=== PATIENT | female | born 1960 | race Caucasian/White ===

== ENCOUNTER 2017-01-23 09:33 | Emergency (ER) | payer BC ==
--- NOTE | 2017-01-23 10:19 | XRAY Preliminary Report ---
Exam: XR CHEST 1 VIEW IMPRESSION: Negative portable chest. [facility] SITE ID: [id number]
--- NOTE | 2017-01-23 10:21 | XRAY Report ---
EXAM: CHEST RADIOGRAPHY EXAM DATE: 01/23/2017 10:09 AM. CLINICAL HISTORY: Chest pain. COMPARISON: None. TECHNIQUE: 1 view. FINDINGS: Lungs/Pleura: No focal opacities evident. No pleural effusion. No pneumothorax. Mediastinum: Within exam limitations, the cardiomediastinal contour is normal. Other: None. IMPRESSION: Negative portable chest. [facility] Referring Provider Line: [phone] SITE ID: [id number]
[2017-01-23 10:43] LABS: BASOPHILS % (AUTO) 0.9 %; EOSINOPHILS # (AUTO) 0.2 10^3/uL (0.0-0.7); EOSINOPHILS % (AUTO) 2.7 %; HCT - HEMATOCRIT 43.6 % (37.0-47.0); HGB - HEMOGLOBIN 14.3 g/dL (12.0-16.0); LYMPHOCYTES # (AUTO) 1.7 10^3/uL (1.5-3.5); MEAN CORPUSCULAR HEMOGLOBIN 28.6 pg (27.0-31.0); MEAN CORPUSCULAR HGB CONC 32.9 g/dL (32.0-36.0); MEAN CORPUSCULAR VOLUME 86.9 fL (81.0-99.0); MEAN PLATELET VOLUME 8.6 fL (7.9-10.8); MONOCYTES # (AUTO) 0.5 10^3/uL (0.0-1.0); MONOCYTES % (AUTO) 8.2 %; NEUTROPHILS # (AUTO) 3.2 10^3/uL (1.5-6.6); NEUTROPHILS % (AUTO) 57.2 %; RED BLOOD COUNT 5.02 10^6/uL (4.20-5.40); RED CELL DISTRIBUTION WIDTH 14.4 % (12.0-15.0); UNCORRECTED WHITE BLOOD COUNT 5.6 x10^3/uL; WHITE BLOOD COUNT 5.6 x10^3/uL (4.8-10.8)
[2017-01-23] MEDS ORDERED: NITROGLYCERIN SL 0.4 MG TABLET SL STA (11:05)
[2017-01-23 11:08] LABS: ALBUMIN/GLOBULIN RATIO 1.6 (1.0-2.2); BILIRUBIN,TOTAL 0.5 mg/dL (0.2-1.0); CALCIUM 9.4 mg/dL (8.5-10.3); POTASSIUM 3.2 mmol/L (3.5-5.0); TOTAL PROTEIN 6.9 g/dL (6.7-8.2)
--- NOTE | 2017-01-23 11:09 | ED Physician Documentation ---
PD HPI CHEST PAIN - Stated complaint Stated Complaint: CHEST PX - Chief complaint Chief Complaint: Cardiac - History obtained from History obtained from: Patient - History of Present Illness Timing - onset: How many hours ago (10) Timing - onset during: Rest Timing - details: Still present Quality: Other ("Heaviness") Location: Substernal Worsened by: Palpation Associated symptoms: No: Shortness of air, Diaphoresis, Nausea, Vomiting Similar symptoms before: Has not had sx before - Additional information Additional information: The patient is a 56-year-old female who presents with substernal chest heaviness that started last night, about 10 hours prior to arrival while in bed. She noticed that it was worse with palpation in the lower sternal region. It became slightly better when sitting up at the edge of the bed. She went back to sleep, but when she awoke this morning she continued to have the feeling of heaviness in her chest. She denies associated nausea, vomiting, shortness of breath, or diaphoresis. She has felt congested, but denies cough or fever, but did have a brief episode of chills last night. She denies history of similar symptoms in the past. She does have a history of migraine headaches, which usually respond to Imitrex and Phenergan. Social history is significant for a plane flight from [place] yesterday. She denies any discomfort in her legs. She has been on a keto diet for the past 3 weeks. She does not smoke cigarettes. She is not treated for diabetes or hypertension. She does report hyperlipidemia. There is no family history of early DC. Review of Systems Constitutional: denies: Fever, Fatigue Nose: reports: Congestion Throat: denies: Sore throat Cardiac: reports: Chest pain / pressure. denies: Palpitations Respiratory: denies: Dyspnea, Cough GI: denies: Abdominal Pain, Nausea, Vomiting : denies: Dysuria Skin: denies: Rash Musculoskeletal: denies: Neck pain, Back pain, Extremity pain, Extremity swelling Neurologic: reports: Headache (mild). 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 - Present Medications Home Medications: Ambulatory Orders Medication Instructions Recorded Confirmed Topiramate 75 mg PO DAILY 10/06/12 09/15/15 Atorvastatin Calcium 10 mg PO DAILY 10/27/12 09/15/15 Baclofen [Lioresal] 10 mg PO DAILY 10/27/12 09/15/15 FLUoxetine [PROzac] 20 mg PO DAILY 10/27/12 09/15/15 Hydroxyzine HCl 50 mg PO DAILY PRN 10/27/12 09/15/15 Magnesium Oxide [Magnesium] 250 mg PO DAILY 10/27/12 09/15/15 Riboflavin [Vitamin B-2] 400 mg PO DAILY 10/27/12 09/15/15 Promethazine Inj [Phenergan Inj] 25 mg IM Q6HR PRN 11/08/12 09/15/15 Sumatriptan Inj [Imitrex] 6 mg SUBQ ONCE PRN #10 vial 04/09/13 09/15/15 Chlorpromazine HCl 50 mg PO Q8HR PRN 01/20/15 09/15/15 oxyCODONE/ACET 5/325 [Percocet 5 1 - 2 each PO Q6H PRN #20 tablet 01/20/1509/14 mg/325 mg] HYDROcod/ACETAM 5/325 [Vicodin 1 - 2 ea PO Q6H PRN #15 tablet 09/15/15 5/325] Ondansetron Odt [Zofran] 4 mg TL Q6H PRN #20 tablet 09/15/15 Nitroglycerin [Nitrostat] 0.4 mg SL Q5MIN PRN #25 tablet 01/23/17 - Allergies Allergies/Adverse Reactions: Allergies Allergy/AdvReac Type Severity Reaction Status Date / Time meperidine HCl * Allergy Intermediate Itching Verified 02/11/16 20:42 [From Demerol] ketorolac tromethamine * Allergy Unknown Unknown Verified 02/11/16 20:42 [From Toradol] sulfamethoxazole AdvReac Severe Headache Verified 02/11/16 20:42 [From Septra] trimethoprim [From Septra] AdvReac Severe Headache Verified 02/11/16 20:42 - Social History Does the pt smoke?: No Smoking Status: Never smoker Does the pt drink ETOH?: No Does the pt have substance abuse?: No - Immunizations Immunizations are current?: No Immunizations: Other immun not current - POLST Patient has POLST: No PD ED PE NORMAL - Vitals Vital signs reviewed: Yes (normal) - General General: Alert and oriented X 3, Well developed/nourished - HEENT HEENT: Atraumatic, Moist mucous membranes, Pharynx benign - Neck Neck: No JVD - Cardiac Cardiac: RRR, No murmur - Respiratory Respiratory: No respiratory distress, Clear bilaterally, Other (No chest wall tenderness to palpation.) - Abdomen Abdomen: Soft, Non tender, No organomegaly - Back Back: No CVA TTP - Derm Derm: No rash - Extremities Extremities: No edema, No calf tenderness / cord - Neuro Neuro: Alert and oriented X 3, No motor deficit, No sensory deficit Results - Vitals Vitals: Oxygen O2 Source Room air - EKG (time done) 09:44 Rate: Rate (enter#) (75) Rhythm: NSR Zoe: LAD Ischemia: Non specific changes Computer interpretation: Agree with computer - Labs Labs: Laboratory Tests 01/23/17 01/23/17 01/23/17 10:20 10:20 10:20 WBC 5.6 RBC 5.02 Hgb 14.3 Hct 43.6 MCV 86.9 MCH 28.6 MCHC 32.9 RDW 14.4 Plt Count 266 MPV 8.6 Neut # 3.2 Lymph # 1.7 Lares # 0.5 Eos # 0.2 Baso # 0.0 Absolute Nucleated RBC 0.00 Nucleated RBC % 0.0 Sodium 140 Potassium 3.2 L Chloride 106 Carbon Dioxide 23 Anion Gap 11.0 BUN 23 H Creatinine 1.0 Estimated GFR (MDRD) 57 L Glucose 91 Calcium 9.4 Total Bilirubin 0.5 AST 18 ALT 16 Alkaline Phosphatase 51 Troponin I < 0.04 Total Protein 6.9 Albumin 4.2 Globulin 2.7 Albumin/Globulin Ratio 1.6 Lipase 36 01/23/17 13:12 WBC RBC Hgb Hct MCV MCH MCHC RDW Plt Count MPV Neut # Lymph # Lares # Eos # Baso # Absolute Nucleated RBC Nucleated RBC % Sodium Potassium Chloride Carbon Dioxide Anion Gap BUN Creatinine Estimated GFR (MDRD) Glucose Calcium Total Bilirubin AST ALT Alkaline Phosphatase Troponin I < 0.04 Total Protein Albumin Globulin Albumin/Globulin Ratio Lipase - Rads (name of study) 1-view CXR Radiology: Prelim report reviewed, EMP read contemporaneously, See rad report ( Negative portable chest.) PD MEDICAL DECISION MAKING - ED course Complexity details: reviewed results, re-evaluated patient, considered differential, d/w patient, d/w family, d/w PMD ED course: The patient's presentation is significant for chest pain of unclear etiology. Cardiac ischemia was considered. There is no acute ST elevation noted on echocardiogram, and true troponin levels 3 hours apart were both negative. I do not think the patient has had an acute myocardial infarction, but it would be prudent to undergo further evaluation with cardiac stress testing. I do not think her symptoms are caused by pulmonary embolus, and there is no other pulmonary abnormality noted on chest x-ray. Gastroesophageal reflux remains a consideration. Treatment in the emergency department included administration of 4 baby aspirin and 1 sublingual nitroglycerin. The patient's chest heaviness completely resolved after 1 sublingual nitroglycerin. She had no recurrence of symptoms over the course of several hours of observation in the emergency department. I discussed her presentation with Dr. Espinosa, who is taking call for MARJORIE Rodriguez. We discussed arranging for outpatient cardiac stress testing. The patient is being discharged with prescription for sublingual nitroglycerin. I discussed with her the results of her workup, the importance of outpatient follow-up, as well as potentially worrisome signs or symptoms that should prompt reevaluation in the emergency department. Departure - Departure Disposition: 01 Home, Self Care Clinical Impression: Chest pain Qualifiers: Chest pain type: precordial pain Qualified Code(s): R07.2 - Precordial pain Condition: Stable Instructions: ED Heart Disease Risk Factors Follow-Up: Kimberly Rodriguez PA [Primary Care Provider] - Prescriptions: Nitroglycerin [Nitrostat] 0.4 mg SL Q5MIN PRN #25 tablet PRN Reason: Angina Comments: Take one baby aspirin daily. If you develop recurrent chest discomfort, take sublingual nitroglycerin. If the pain does not resolve within 5 minutes, take a second sublingual nitroglycerin and call 911. Schedule followup appointment with your primary physician within one week. Call to schedule an appointment. I have talked to her partner about scheduling an outpatient cardiac stress test. Return to the emergency room if you develop recurrent or increasing chest pain, shortness of breath, or otherwise worsening symptoms. Discharge Date/Time: 01/23/17 14:19
[2017-01-23] MEDS ORDERED: NITROGLYCERIN SL 0.4 MG TABLET SL ONE (11:11)
[2017-01-23] MEDS ORDERED: ASPIRIN CHEW 81 MG TABLET PO STA (12:13)
[2017-01-23] MEDS ORDERED: ASPIRIN CHEW 81 MG TABLET ONE (12:35)
[2017-01-23 14:15] VITALS: BP 111/77
== END 2017-01-23 14:19 | disposition home or self-care (01) ==
LOC: ED 09:33
DX: R07.2 Precordial pain (principal)
CPT/HCPCS: 36415; 71010; 80053; 83690; 84484; 85025; 93005; 99284; A9270

== ENCOUNTER 2017-05-12 15:26 | Outpatient (CLI) | payer BC ==
--- NOTE | 2017-05-12 17:31 | Ultrasound Report ---
EXAM: LEFT LOWER EXTREMITY VENOUS ULTRASOUND EXAM DATE: 05/12/2017 05:10 PM. CLINICAL HISTORY: Calf pain and swelling. Factor V. COMPARISON: None. TECHNIQUE: Real-time sonographic vascular imaging was performed by the rehab therapy manager through the lower extremity utilizing both color-flow and Doppler spectral analysis. Multiple communications representative static kristi ges were saved for review. FINDINGS: Common Femoral Vein (CFV): Normal. CFV-GSV Junction: Normal. Profunda Femoral Vein (PFV): Normal. Femoral Vein (FV) Prox: Normal. Femoral Vein (FV) Mid: Occlusive thrombus. Femoral Vein (FV) Dist: Occlusive thrombus. Popliteal Vein: Occlusive thrombus. Posterior Tibial Veins: Occlusive thrombus. Peroneal Veins: Occlusive thrombus. IMPRESSION: Occlusive DVT involving the mid to distal femoral vein, popliteal vein, and calf veins. ALYCIAA The call report notification system was initiated by Dr. Lui Floyd at 17:21 hrs on 05/12/17. The above findings were discussed with MARJORIE Rodriguez by Dr. Liu Floyd at 17:29 hrs on 05/12/17. Referring Provider Line: [phone] SITE ID: [id number]
== END 2017-05-12 15:27 | disposition home or self-care (01) ==
LOC: DI 15:26
PROVIDERS: ATTEND Physician Assistant
DX: I82.412 Acute embolism and thrombosis of left femoral vein (principal); I82.432 Acute embolism and thrombosis of left popliteal vein; I82.4Z2 Acute embolism and thrombosis of unspecified deep veins of left distal lower extremity

== ENCOUNTER 2017-05-12 17:36 | Emergency (ER) | payer BC ==
[2017-05-12] MEDS ORDERED: RIVAROXABAN 15 MG TABLET PO STA (18:53)
--- NOTE | 2017-05-12 18:57 | ED Physician Documentation ---
History of Present Illness - Stated complaint Stated Complaint: LT CALF PX/US RESULT - Chief complaint Chief Complaint: Ext Problem - Additonal information Additional information: hx from pt 56 f hx factor V leiden def recent leg injury now swollen with politeal and thigh pain no CP or SOA went to PMD who ordered a doppler which showed an extensive DVT sent to ER ot have anticoagulation started no hx hepatic of kidney dz - nl LFTs and creat 1.0 last fall Review of Systems Constitutional: denies: Fever Cardiac: denies: Chest pain / pressure Respiratory: denies: Dyspnea Musculoskeletal: reports: Extremity pain, Extremity swelling PD PAST MEDICAL HISTORY - Past Medical History Past Medical History: Yes Cardiovascular: High cholesterol Neuro: Headache/migraine Endocrine/Autoimmune: None GI: None - Past Surgical 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 - Present Medications Home Medications: Ambulatory Orders Medication Instructions Recorded Confirmed Topiramate 75 mg PO DAILY 10/06/12 09/15/15 Atorvastatin Calcium 10 mg PO DAILY 10/27/12 09/15/15 Baclofen [Lioresal] 10 mg PO DAILY 10/27/12 09/15/15 FLUoxetine [PROzac] 20 mg PO DAILY 10/27/12 09/15/15 Hydroxyzine HCl 50 mg PO DAILY PRN 10/27/12 09/15/15 Magnesium Oxide [Magnesium] 250 mg PO DAILY 10/27/12 09/15/15 Riboflavin [Vitamin B-2] 400 mg PO DAILY 10/27/12 09/15/15 Promethazine Inj [Phenergan Inj] 25 mg IM Q6HR PRN 11/08/12 09/15/15 Sumatriptan Inj [Imitrex] 6 mg SUBQ ONCE PRN #10 vial 04/09/13 09/15/15 Chlorpromazine HCl 50 mg PO Q8HR PRN 01/20/15 09/15/15 oxyCODONE/ACET 5/325 [Percocet 5 1 - 2 each PO Q6H PRN #20 tablet 01/20/1509/14 mg/325 mg] HYDROcod/ACETAM 5/325 [Vicodin 1 - 2 ea PO Q6H PRN #15 tablet 09/15/15 5/325] Ondansetron Odt [Zofran] 4 mg TL Q6H PRN #20 tablet 09/15/15 Nitroglycerin [Nitrostat] 0.4 mg SL Q5MIN PRN #25 tablet 01/23/17 Rivaroxaban [Xarelto] 15 mg PO BID #41 tablet 05/12/17 - Allergies Allergies/Adverse Reactions: Allergies Allergy/AdvReac Type Severity Reaction Status Date / Time meperidine HCl * Allergy Intermediate Itching Verified 02/11/16 20:42 [From Demerol] ketorolac tromethamine * Allergy Unknown Unknown Verified 02/11/16 20:42 [From Toradol] sulfamethoxazole AdvReac Severe Headache Verified 02/11/16 20:42 [From Septra] trimethoprim [From Septra] AdvReac Severe Headache Verified 02/11/16 20:42 - Social History Does the pt smoke?: No Smoking Status: Never smoker Does the pt drink ETOH?: No Does the pt have substance abuse?: No - Immunizations Immunizations are current?: No Immunizations: Other immun not current - POLST Patient has POLST: No PD ED PE NORMAL - Vitals Vital signs reviewed: Yes - Cardiac Cardiac: RRR - Respiratory Respiratory: No respiratory distress, Clear bilaterally - Extremities Extremities: No: Other (LLE - swollen calf, popliteal ,TTP, some medial calf TTP., MSV intact) Results - Vitals Vitals: Vital Signs - 24 hr 05/12/17 17:49 Temperature 37.3 C Heart Rate 79 Respiratory 18 Rate Blood Pressure 103/83 H O2 Saturation 99 Oxygen O2 Source Room air PD MEDICAL DECISION MAKING - ED course ED course: doppler report - occlussive DVT mid to distal femoral vein, popliteal vein, calf veins no s/sx PE no contraindication to xarelto started PO xarelto - will write for first three weeks of BID then PMD can write for the 20 PO QD and determine duration of tx given underlying factor V leiden - or pt could have her quality control coordinator manage that Departure - Departure Disposition: 01 Home, Self Care Clinical Impression: DVT (deep venous thrombosis) Qualifiers: DVT location: lower extremity Affected thrombotic vein of extremity: femoral Chronicity: acute Laterality: left Qualified Code(s): I82.412 - Acute embolism and thrombosis of left femoral vein Condition: Good Instructions: ED DVT Follow-Up: Kimberly Rodriguez PA [Primary Care Provider] - Judy Mcgee MD [Provider Admit Priv/Credential] - Prescriptions: Rivaroxaban [Xarelto] 15 mg PO BID #41 tablet Comments: You need to take the xarelto 15 mg dose twice a day for 21 days - I wrote this prescription Then you change to 20 mg once a day - your PMD can write that prescription. You will need to be on the blood thinner for at least 3 months Given your Factor V Leiden disease, you may need a longer duration of treatment - please discuss how long you need to take the xarelto with your quality control coordinator Dr Mcgee. If at any time you develop chest pain or shortness of breath come back to the ER right away - that might indicate a blood clot in your lung called a pulmonary embolus and that can be very dangerous. If you fall or get hurt - especially if you hit your head - while on xarelto, come to the emergency department to be checked out. Be sure to let any health care providers you see know you are on xarelto
[2017-05-12 19:20] VITALS: BP 107/89
== END 2017-05-12 19:17 | disposition home or self-care (01) ==
LOC: ED 17:36
DX: I82.412 Acute embolism and thrombosis of left femoral vein (principal); D68.51 Activated protein C resistance; I82.432 Acute embolism and thrombosis of left popliteal vein; I82.4Z2 Acute embolism and thrombosis of unspecified deep veins of left distal lower extremity
CPT/HCPCS: 93971; 99283; A9270

== ENCOUNTER 2017-07-21 13:49 | Outpatient (CLI) | payer BC ==
--- NOTE | 2017-07-21 15:29 | XRAY Report ---
TWO VIEW THORACIC SPINE: 07/21/2017 CLINICAL INDICATION: Back pain. FINDINGS: Frontal and lateral views of the thoracic spine demonstrate mild degenerative disk disease, with minimal levoscoliosis of the upper thoracic spine. There is no evidence of compression fracture or subluxation. No paraspinal hematoma is seen. IMPRESSION: MILD DEGENERATIVE DISK DISEASE, WITH MINIMAL LEVOSCOLIOSIS OF THE UPPER THORACIC SPINE. TD: 07/21/2017 15:28
== END 2017-07-21 13:50 | disposition home or self-care (01) ==
LOC: DI.S 13:49
PROVIDERS: ATTEND Physician Assistant
DX: M51.34 Other intervertebral disc degeneration, thoracic region (principal); M41.84 Other forms of scoliosis, thoracic region
CPT/HCPCS: 72070

== ENCOUNTER 2017-08-24 14:55 | Outpatient (CLI) | payer BC ==
[2017-08-24 18:54] LABS: INR 1.6 (0.8-1.2); PT - PROTHROMBIN TIME 17.9 secs (9.9-12.6)
== END 2017-08-24 14:56 | disposition home or self-care (01) ==
LOC: LAB.F 14:55
PROVIDERS: ATTEND Internal Medicine
DX: I82.402 Acute embolism and thrombosis of unspecified deep veins of left lower extremity (principal)
CPT/HCPCS: 36415; 85610

== ENCOUNTER 2017-08-27 09:21 | Outpatient (CLI) | payer BC | END 2017-08-27 09:22 | disposition home or self-care (01) | LOC: LAB.F 09:21 | PROVIDERS: ATTEND Internal Medicine | DX: I82.402 Acute embolism and thrombosis of unspecified deep veins of left lower extremity (principal) | CPT/HCPCS: 85610 ==

== ENCOUNTER 2017-09-03 11:03 | Outpatient (CLI) | payer BC | END 2017-09-03 11:04 | disposition home or self-care (01) | LOC: LAB.F 11:03 | PROVIDERS: ATTEND Internal Medicine | DX: I82.402 Acute embolism and thrombosis of unspecified deep veins of left lower extremity (principal) | CPT/HCPCS: 85610 ==

== ENCOUNTER 2017-09-10 08:01 | Outpatient (CLI) | payer BC | END 2017-09-10 08:02 | disposition home or self-care (01) | LOC: LAB.F 08:01 | PROVIDERS: ATTEND Internal Medicine | DX: I82.402 Acute embolism and thrombosis of unspecified deep veins of left lower extremity (principal) | CPT/HCPCS: 85610 ==

== ENCOUNTER 2017-09-15 12:28 | Outpatient (CLI) | payer BC | END 2017-09-15 12:29 | disposition home or self-care (01) | LOC: LAB.F 12:28 | PROVIDERS: ATTEND Internal Medicine | DX: I82.402 Acute embolism and thrombosis of unspecified deep veins of left lower extremity (principal) | CPT/HCPCS: 85610 ==

== ENCOUNTER 2017-09-22 08:00 | Outpatient (CLI) | payer BC | END 2017-09-22 08:01 | LOC: LAB.F 08:00 | PROVIDERS: ATTEND Internal Medicine | DX: I82.402 Acute embolism and thrombosis of unspecified deep veins of left lower extremity (principal) | CPT/HCPCS: 85610 ==

== ENCOUNTER 2018-07-19 10:23 | Day surgery (SDC) | payer BC ==
[2018-07-19] MEDS ORDERED: LACTATED RINGERS 1,000 ML IV ONE (10:27)
--- NOTE | 2018-07-19 10:56 | ANESTHESIA ---
Pre-Anesthesia VS, & Labs - Diagnosis screening for cancer - Procedure colonoscopy Vital Signs: Temp Pulse Resp BP Pulse Ox 36.0 C L 64 16 113/92 H 100 07/19/18 10:36 07/19/18 10:36 07/19/18 10:36 07/19/18 10:36 07/19/18 10:36 Height 5 ft 11 in Weight (kg) 70 kg Body Mass Index 22.6 - NPO >8 hours - Is Patient ?: Not Applicable Home Medications and Allergies Topiramate 75 mg PO DAILY 10/06/12 Atorvastatin Calcium 10 mg PO DAILY 10/27/12 Baclofen [Lioresal] 10 mg PO DAILY 10/27/12 FLUoxetine [PROzac] 20 mg PO DAILY 10/27/12 Hydroxyzine HCl 50 mg PO DAILY PRN 10/27/12 Magnesium Oxide [Magnesium] 250 mg PO DAILY 10/27/12 Riboflavin [Vitamin B-2] 400 mg PO DAILY 10/27/12 Promethazine Inj [Phenergan Inj] 25 mg IM Q6HR PRN 11/08/12 Chlorpromazine HCl 50 mg PO Q8HR PRN 01/20/15 Gabapentin 3 cap PO DAILY 06/16/17 Allergies/Adverse Reactions: Allergies Allergy/AdvReac Type Severity Reaction Status Date / Time meperidine HCl * Allergy Intermediate Itching Verified 02/11/16 20:42 [From Demerol] ketorolac tromethamine * Allergy Unknown Unknown Verified 02/11/16 20:42 [From Toradol] sulfamethoxazole AdvReac Severe Headache Verified 02/11/16 20:42 [From Septra] trimethoprim [From Septra] AdvReac Severe Headache Verified 02/11/16 20:42 Anes History & Medical History - Anesthetic History Anesthesia Complications: reports: No previous complications Family history of Anesthesia Complications: Denies Family history of Malignant Hyperthermia: Denies - Medical History Cardiovascular: reports: Hypertension, High cholesterol, Deep vein thrombosis Pulmonary: reports: None Gastrointestinal: reports: None Urinary: reports: None Musculoskeletal: reports: Other Endocrine/Autoimmune: reports: None Skin: reports: None Smoking Status: Never smoker - Surgical History Gynecologic: section Exam General: Alert, Oriented x3, Cooperative, No acute distress Dental: Other (caps) Mouth Openin Fingerbreadth Neck Mobility: Normal Mallampati classification: II Thyromental Distance: greater than 6 cm Respiratory: Lungs clear, Normal breath sounds, No respiratory distress, No accessory muscle use Cardiovascular: Normal S1, Normal S2 Mental/Cognitive Status: Alert/Oriented X3, Normal for patient Plan Anesthesia Type: MAC Consent for Procedure(s) Verified and Reviewed: Yes Code Status: Attempt Resuscitation ASA classification: 2-Mild systemic disease Is this case an emergency?: No
[2018-07-19] MEDS ORDERED: MIDAZOLAM 2 MG/2 ML VIAL IVP ONE (11:10)
[2018-07-19] MEDS ORDERED: fentaNYL 250 MCG/5 ML VIAL IVP ONE (11:10)
[2018-07-19 12:20] VITALS: BP 116/85
== END 2018-07-19 10:24 | disposition home or self-care (01) ==
LOC: SDS 10:23
PROVIDERS: ATTEND Surgery
PROC: 0DBK8ZZ Excision of Ascending Colon, Via Natural or Artificial Opening Endoscopic (ICD-10-PCS; principal; 2018-07-19 12:00)
DX: Z12.11 Encounter for screening for malignant neoplasm of colon (principal); D12.2 Benign neoplasm of ascending colon; K64.8 Other hemorrhoids; D68.51 Activated protein C resistance; F32.9 Major depressive disorder, single episode, unspecified; G43.909 Migraine, unspecified, not intractable, without status migrainosus; Z86.718 Personal history of other venous thrombosis and embolism; Z79.891 Long term (current) use of opiate analgesic; Z79.01 Long term (current) use of anticoagulants
CPT/HCPCS: 45380; J3010; J7120

== ENCOUNTER 2018-08-14 10:07 | Emergency (ER) | payer BC ==
--- NOTE | 2018-08-14 11:18 | ED Physician Documentation ---
History of Present Illness - Stated complaint Stated Complaint: POSS DVT - Chief complaint Chief Complaint: Cardiac - History obtained from History obtained from: Patient, Family - History of Present Illness Timing: Yesterday - Additonal information Additional information: 57-year-old female with a history of factor V Leiden and migraine headaches had an injection of some new medication Emgality for her migraine headaches. She has had these injections done monthly since April and they have been helped significantly with her migraines. She has developed some leg cramping following this and her neurologist is prescribed some calcium and magnesium for her. She states that she now has some pain in her left lower extremity that starts in the buttocks and radiates down the back of the leg and the side of the leg. She has some numbness and tingling in her foot. She has not had these symptoms previously. She has had a DVT previously in the left leg. Review of Systems Constitutional: denies: Fever Eyes: denies: Decreased vision Ears: denies: Ear pain Nose: denies: Congestion Throat: denies: Sore throat Cardiac: reports: Chest pain / pressure. denies: Palpitations, Pedal edema, Ca lf pain Respiratory: reports: Dyspnea. denies: Cough GI: denies: Abdominal Pain, Abdominal Swelling, Nausea, Vomiting : denies: Dysuria, Frequency Skin: denies: Rash Musculoskeletal: reports: Extremity pain. 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 - Present Medications Home Medications: Ambulatory Orders Medication Instructions Recorded Confirmed Topiramate 75 mg PO DAILY 10/06/12 07/19/18 Atorvastatin Calcium 10 mg PO DAILY 10/27/12 07/19/18 Baclofen [Lioresal] 10 mg PO DAILY 10/27/12 07/19/18 FLUoxetine [PROzac] 20 mg PO DAILY 10/27/12 07/19/18 Hydroxyzine HCl 50 mg PO DAILY PRN 10/27/12 07/19/18 Magnesium Oxide [Magnesium] 250 mg PO DAILY 10/27/12 07/19/18 Riboflavin [Vitamin B-2] 400 mg PO DAILY 10/27/12 07/19/18 Promethazine Inj [Phenergan Inj] 25 mg IM Q6HR PRN 11/08/12 07/19/18 Sumatriptan Inj [Imitrex] 6 mg SUBQ ONCE PRN #10 vial 04/09/13 07/19/18 Chlorpromazine HCl 50 mg PO Q8HR PRN 01/20/15 07/19/18 oxyCODONE/ACET 5/325 [Percocet 5 1 - 2 each PO Q6H PRN #20 tablet 01/20/15 07/19/18 mg/325 mg] Ondansetron Odt [Zofran] 4 mg TL Q6H PRN #20 tablet 09/15/15 07/19/18 Nitroglycerin [Nitrostat] 0.4 mg SL Q5MIN PRN #25 tablet 01/23/17 07/19/18 Gabapentin 3 cap PO DAILY 06/16/17 07/19/18 Cyclobenzaprine [Flexeril] 10 mg PO TID PRN #20 tablet 08/14/18 Hydrocodone/Acetaminophen 1 - 2 each PO Q6H PRN #14 tablet 08/14/18 [Hydrocodon-Acetaminophen 5-325] - Allergies Allergies/Adverse Reactions: Allergies Allergy/AdvReac Type Severity Reaction Status Date / Time meperidine HCl * Allergy Intermediate Itching Verified 08/14/18 10:14 [From Demerol] ketorolac tromethamine * Allergy Unknown Unknown Verified 08/14/18 10:14 [From Toradol] sulfamethoxazole AdvReac Severe Headache Verified 08/14/18 10:14 [From Septra] trimethoprim [From Septra] AdvReac Severe Headache Verified 08/14/18 10:14 - Social History Does the pt smoke?: No Smoking Status: Never smoker Does the pt drink ETOH?: No Does the pt have substance abuse?: No - Immunizations Immunizations are current?: No Immunizations: Other immun not current - POLST Patient has POLST: No PD ED PE NORMAL - Vitals Vital signs reviewed: Yes (hypertensive ) - General General: Alert and oriented X 3, No acute distress, Well developed/nourished - HEENT HEENT: Atraumatic, PERRL, EOMI - Neck Neck: Supple, no meningeal sign - Cardiac Cardiac: RRR, No murmur - Respiratory Respiratory: No respiratory distress, Clear bilaterally - Abdomen Abdomen: Soft, Non tender - Back Back: No CVA TTP, No spinal TTP - Derm Derm: Normal color, Warm and dry, No rash - Extremities Extremities: No deformity, No edema, Other (There is some tenderness into the sciatic notch and no tenderness to the posterior calf on the left. ) - Neuro Neuro: Alert and oriented X 3, executive chairman 2-12 intact, No motor deficit, No sensory deficit, Normal speech Eye Opening: Spontaneous Motor: Obeys Commands Verbal: Oriented GCS Score: 15 - Psych Psych: Normal mood, Normal affect Results - Vitals Vitals: Vital Signs - 24 hr 08/14/18 08/14/18 10:12 11:38 Temperature 36.7 C 36.5 C Heart Rate 58 L 52 L Respiratory 18 12 Rate Blood Pressure 147/85 H 122/81 H O2 Saturation 97 99 Oxygen O2 Source Room air - EKG (time done) 1019 Rate: Rate (enter#) (52) Rhythm: Sinus bradycardia [place]: LAD Intervals: Prolonged RI Compare to prior EKG: Unchanged from prior EKG (SPT 04-25-16 no change. ) Computer interpretation: Agree with computer - Labs Labs: Laboratory Tests 08/14/18 08/14/18 08/14/18 11:35 11:35 11:35 WBC 4.4 L RBC 4.80 Hgb 13.8 Hct 41.4 MCV 86.3 MCH 28.8 MCHC 33.3 RDW 14.1 Plt Count 232 MPV 7.9 Neut # (Auto) 2.7 Lymph # (Auto) 1.2 L [place] # (Auto) 0.3 Eos # (Auto) 0.1 Baso # (Auto) 0.0 Absolute Nucleated RBC 0.00 Nucleated RBC % 0.1 Sodium 140 Potassium 3.7 Chloride 99 L Carbon Dioxide 30 Anion Gap 11.0 BUN 15 Creatinine 0.8 Estimated GFR (MDRD) 73 L Glucose 88 Calcium 9.5 Total Bilirubin 0.7 AST 24 ALT 24 Alkaline Phosphatase 52 Troponin I < 0.04 Total Protein 6.7 Albumin 4.1 Globulin 2.6 Albumin/Globulin Ratio 1.6 Lipase 37 - Rads (name of study) duplex left veins Radiology: Prelim report reviewed (Impression: No evidence for deep venous thrombosis.), EMP read indepedently, See rad report Procedures - IVC sono (time) 1112 Bedside IVC sono: IVC measures (cm) (1.54), Euvolemia PD MEDICAL DECISION MAKING - ED course Complexity details: reviewed results, re-evaluated patient, considered differential, d/w patient, d/w family ED course: 57-year-old female presenting with left leg pain that sounds like it is likely sciatica in nature has a history of DVT in the same leg and factor V Leiden. A duplex exam is obtained. The duplex is negative and she is administered decadron 10mg PO and we will place her on some pain medication and muscle relaxant and have her follow up with Rosina Rodriguez. Departure - Departure Disposition: 01 Home, Self Care Clinical Impression: Sciatica Qualifiers: Laterality: left Qualified Code(s): M54.32 - Sciatica, left side Condition: Stable Instructions: ED Sciatica Follow-Up: Kimberly Rodriguez PA [Primary Care Provider] - Prescriptions: Cyclobenzaprine [Flexeril] 10 mg PO TID PRN #20 tablet PRN Reason: Spasms Hydrocodone/Acetaminophen [Hydrocodon-Acetaminophen 5-325] 1 - 2 each PO Q6H PRN #14 tablet PRN Reason: pain
[2018-08-14 11:43] LABS: BASOPHILS % (AUTO) 0.5 %; EOSINOPHILS # (AUTO) 0.1 10^3/uL (0.0-0.7); EOSINOPHILS % (AUTO) 2.9 %; HGB - HEMOGLOBIN 13.8 g/dL (12.0-16.0); LYMPHOCYTES # (AUTO) 1.2 10^3/uL (1.5-3.5); LYMPHOCYTES % (AUTO) 28.2 %; MEAN CORPUSCULAR HEMOGLOBIN 28.8 pg (27.0-31.0); MEAN CORPUSCULAR HGB CONC 33.3 g/dL (32.0-36.0); MEAN CORPUSCULAR VOLUME 86.3 fL (81.0-99.0); MEAN PLATELET VOLUME 7.9 fL (7.9-10.8); MONOCYTES # (AUTO) 0.3 10^3/uL (0.0-1.0); MONOCYTES % (AUTO) 7.7 %; NEUTROPHILS # (AUTO) 2.7 10^3/uL (1.5-6.6); NEUTROPHILS % (AUTO) 60.7 %; PLT - PLATELET COUNT 232 10^3/uL (130-450); RED CELL DISTRIBUTION WIDTH 14.1 % (12.0-15.0); WHITE BLOOD COUNT 4.4 x10^3/uL (4.8-10.8)
[2018-08-14 11:56] LABS: ALBUMIN 4.1 g/dL (3.2-5.5); ALBUMIN/GLOBULIN RATIO 1.6 (1.0-2.2); BILIRUBIN,TOTAL 0.7 mg/dL (0.2-1.0); CALCIUM 9.5 mg/dL (8.5-10.3); CREATININE 0.8 mg/dL (0.4-1.0); TOTAL PROTEIN 6.7 g/dL (6.7-8.2)
--- NOTE | 2018-08-14 13:06 | Ultrasound Report ---
Reason: LLE pain hx of factor V liden Procedure Date: 08/14/2018 Accession Number: [id number] / [id number] Procedure: US - Duplex Ext Veins Left CPT Code: FULL RESULT: EXAM: LEFT LOWER EXTREMITY VENOUS ULTRASOUND EXAM DATE: 08/14/2018 12:55 PM. CLINICAL HISTORY: LLE pain hx of factor V Leiden deficiency. COMPARISON: Left lower extremity venous ultrasound of 05/12/2017. TECHNIQUE: Real-time sonographic vascular imaging was performed by the assistant restaurant general manager through the lower extremity utilizing both color-flow and Doppler spectral analysis. Multiple disability representative static images were saved for review. FINDINGS: Common Femoral Vein (CFV): Normal. CFV-GSV Junction: Normal. Profunda Femoral Vein (PFV): Normal. Femoral Vein (FV) Prox: Normal. Femoral Vein (FV) Mid: Normal. Femoral Vein (FV) Dist: Normal. Popliteal Vein: Normal. Posterior Tibial Veins: Normal. Peroneal Veins: Normal. Other: None. IMPRESSION: No evidence for deep venous thrombosis. [facility]
[2018-08-14] MEDS ORDERED: DEXAMETHASONE 10 MG/ML VIAL PO STA (13:23)
[2018-08-14] MEDS ORDERED: CHERRY SYRUP 10 ML UDC PO ONE (13:23)
[2018-08-14 13:55] VITALS: BP 116/82
== END 2018-08-14 13:56 | disposition home or self-care (01) ==
LOC: ED 10:07
DX: M54.32 Sciatica, left side (principal); D68.51 Activated protein C resistance; G43.909 Migraine, unspecified, not intractable, without status migrainosus; E78.00 Pure hypercholesterolemia, unspecified; Z86.718 Personal history of other venous thrombosis and embolism; Z79.891 Long term (current) use of opiate analgesic; Z79.899 Other long term (current) drug therapy
CPT/HCPCS: 36415; 80053; 83690; 84484; 85025; 93005; 93971; 99283; A9270